=== PATIENT | male | born 1955 | race American Indian/Alaskan Native ===

== ENCOUNTER 2017-09-09 06:36 | Day surgery (SDC) | payer MEDICAID ==
[2017-09-09] MEDS ORDERED: NACL 0.9% 500 ML 500 ML IV SCH (08:00)
[2017-09-09 08:42] LABS: Basophils % (Auto) 0.5 % (0.0-1.8); Eosinophils % (Auto) 3.8 % (0.0-4.3); Hematocrit 39.8 % (35.5-45.6); Hemoglobin 12.8 gm/dl (11.8-15.2); Mean Corpuscular HGB Conc 32 % (32-34); Mean Corpuscular Hemoglobin 27 pg (28-32); Mean Corpuscular Volume 84 fl (84-94); Platelet Count 145 K/mm3 (140-440); Red Blood Count 4.73 M/mm3 (3.65-5.03); Red Cell Distribution Width 15.4 % (13.2-15.2); White Blood Count 9.8 K/mm3 (4.5-11.0)
[2017-09-09 08:52] LABS: INR 0.95 (0.87-1.13)
[2017-09-09 09:28] LABS: Calcium 8.6 mg/dL (8.4-10.2); Potassium 4.4 mmol/L (3.6-5.0)
[2017-09-09] MEDS ORDERED: XYLOCAINE 2% INFILTRATI ONE (09:37)
[2017-09-09] MEDS ORDERED: HEPARIN/NS 5000 UNIT/500ML(CATH LAB) 1,000 ML IR ONE (09:37)
[2017-09-09] MEDS: VERSED ONE ×2 (09:50→10:30)
[2017-09-09] MEDS: SUBLIMAZE ONE ×2 (10:30→10:44)
--- NOTE | 2017-09-09 11:20 | Discharge Summary ---
Short Stay Discharge Plan Activity: advance as tolerated Weight Bearing Status: Partial Weight Bearing Diet: low cholesterol, low salt, diabetic Wound: keep clean and dry Special Instructions: smoking cessation Follow up with: FERNANDA HIGH JR, MD [Primary Care Provider] - 7 Days MASON HART MD [Staff Physician] - 7 Days
--- NOTE | 2017-09-09 11:37 | Cardiac Catherization Report ---
CARDIAC CATHETERIZATION REASON FOR PROCEDURE: The patient is a 62-year-old man with a history of coronary artery disease, status post 3-vessel coronary artery bypass done in [place] in 2002. He was referred at this time for cardiac catheterization for chest pain and abnormal thallium stress test. Prior to the catheterization procedure, we found the patient with chronic kidney disease, creatinine 1.5. We discussed additional risks of contrast nephropathy and acute tubular necrosis. He is understanding of the elevated risk of contrast nephropathy in the setting of chronic kidney disease. He consents to proceed with diagnostic coronary angiography. PROCEDURES PERFORMED: 1. Left heart catheterization. 2. Selective left and right coronary angiography. 3. Selective angiography of the saphenous vein grafts. 4. Selective angiography of the left internal mammary artery. The patient was prepped and draped in a sterile fashion after informed consent. Right femoral artery was entered using Seldinger technique followed by placement of a 6-[place] sheath. Selective left and right coronary angiography was performed using #4 left and right Trish catheters. The right Trish was then used for saphenous vein graft angiography. Finally, we exchanged for left internal mammary artery catheter for left internal mammary artery graft angiography. The catheters were then removed, sheath removed, and hemostasis achieved using manual compression. The patient was returned to the postprocedure unit in stable condition. There were no complications. FINDINGS: HEMODYNAMICS: Ascending aortic pressure was 167/72. CORONARY ANGIOGRAPHY: The left main coronary artery contained diffuse mild atherosclerosis. Following that, there was heavy calcification of the proximal to mid segments of the LAD. The ostium of the LAD was notable for a long, eccentric 60%-70% stenosis. This ostial proximal LAD lesion led to a small to medium sized mid diagonal branch of the LAD. Beyond this diagonal branch, the LAD was completely occluded. The saphenous vein graft to the LAD was patent with good anastomosis to the mid LAD beyond its occlusion. There was good distal runoff into a medium to large caliber LAD system. We have noted diffuse moderate atherosclerosis of the LAD in its distal segments beyond the graft insertion. The circumflex artery was also completely occluded in its proximal AV groove segment, within a previously stented segment. The [place] right coronary artery was dominant. This vessel contained diffuse moderate to severe atherosclerosis of its mid segment. Following that, there was a focal, 90% stenosis of the distal AV groove between the acute margin on the right posterior descending branch. A saphenous vein graft was fashioned with [id number] anastomosis to the mid obtuse marginal branch of the circumflex and end-to-side into the posterior descending branch of the right coronary artery. This saphenous vein graft was patent with good anastomosis to the mid obtuse marginal and good anastomosis to the right posterior descending branch. There was good distal runoff into both vessels. We did note that the mid obtuse marginal was a very small caliber, severely, diffusely diseased vessel. Finally, left internal mammary artery injection revealed this to be a very small caliber atrophic vessel that was not previously used for bypass. CONCLUSION: 1. Severe 3-vessel coronary artery disease. 2. Patent saphenous vein graft to the LAD. 3. Patent saphenous vein graft with two targets to the mid obtuse marginal branch and the distal right coronary artery. 4. Left internal mammary artery is atrophic, not used for bypass. 5. Total contrast used for the procedure was 40 mL. RECOMMENDATION 1. Aggressive risk factor modification. 2. Possible sources of angina include the moderate to severe stenosis of the LAD ostium, which feeds a small to medium sized mid diagonal branch. In addition, there is diffuse small vessel disease as reported above. These potential areas will be treated with aggressive risk factor modification and medical therapy. JOB# [id number] CATHY/SHERYL
[2017-09-09] MEDS ORDERED: NACL 0.9% 1000 ML 1,000 ML IV SCH (12:00)
[2017-09-09 16:05] VITALS: BP 162/89
== END 2017-09-09 16:30 | disposition home or self-care (01) ==
LOC: CATHLABREC 06:36
PROVIDERS: ATTEND Internal Medicine Cardiovascular Disease
DX: I25.10 Atherosclerotic heart disease of native coronary artery without angina pectoris (principal); I10 Essential (primary) hypertension; E11.9 Type 2 diabetes mellitus without complications; M19.90 Unspecified osteoarthritis, unspecified site; F03.90 Unspecified dementia, unspecified severity, without behavioral disturbance, psychotic disturbance, mood disturbance, and anxiety; Z95.5 Presence of coronary angioplasty implant and graft; Z79.899 Other long term (current) drug therapy; Z79.4 Long term (current) use of insulin
CPT/HCPCS: 36415; 80048; 82962; 85025; 85610; 85730; 93005; 93010; 93459; 99156; 99157; C1894; J1644; J2250; J3010; J7030; J7040; Q9967